=== PATIENT | female | born 1930 | race Hispanic/Latino ===

== ENCOUNTER 2017-10-24 02:04 | Emergency (ER) | payer MEDICARE | END 2017-10-24 02:31 | disposition left against medical advice (07) | LOC: ERS 02:04 | DX: Z53.21 Procedure and treatment not carried out due to patient leaving prior to being seen by health care provider (principal) ==

== ENCOUNTER 2018-03-20 10:28 | Inpatient (IN) | payer MEDICARE ==
[2018-03-20 11:17] LABS: Bilirubin Small (Negative); Blood, Urine Moderate (Negative); Clarity CLOUDY (Clear); Glucose, Urine (Dipstick) Negative (Negative); Leukocyte Small (Negative); Nitrite Negative (Negative); Protein, Urine (Dipstick) Trace mg/dL (Neg-Trace); Specific Gravity, Urine 1.024 (1.002-1.036)
[2018-03-20 11:20] LABS: Bacteria/HPF None Seen HPF (None Seen); WBC/HPF 0-3 HPF (0-3)
[2018-03-20 11:23] LABS: Pathc Cast-AUWi Flag 4.07 (0-2.49)
[2018-03-20 11:24] LABS: Hyaline Casts/LPF 0-3 HYALINE CAST LPF (0-3 Hyaline); Manual Microscopic Reviewed? No Path Casts Seen
[2018-03-20 12:13] LABS: #Basophils 0.1 thou/uL (0.0-0.2); #Eosinphils 0.2 thou/uL (0.0-0.7); #Lymphocytes 1.2 thou/uL (1.20-3.40); #Monocytes 0.6 thou/uL (0.11-0.59); #Neutrophils 5.6 thou/uL (1.40-6.50); %Basophils 0.9 % (0.0-1.0); %Eosinophils 3.1 % (0.0-10.0); %Monocytes 8.1 % (0.0-10.0); %Neutrophils 71.9 % (42.0-75.0); Hemoglobin 12.4 g/dL (12.0-16.0); Mean Corpuscular HGB CONC 33.5 g/dL (32.0-36.0); Mean Corpuscular Hemoglobin 30.8 pg (27.0-31.0); Mean Corpuscular Volume 91.9 fL (78.0-98.0); Mean Platelet Volume 7.9 fL (7.4-10.4); Platelet Count 261 thou/uL (130-400); RBC Distribution Width 11.5 % (11.5-14.5); Red Blood Cell (RBC) Count 4.04 mill/uL (4.20-5.40); White Blood Cell (WBC) Count 7.7 thou/uL (4.8-10.8)
[2018-03-20 12:31] LABS: ALT (SGPT) 14 U/L (8-55); AST (SGOT) 18 U/L (5-34); Albumin 4.1 g/dL (3.4-4.8); Alkaline Phosphatase 74 U/L (40-150); Anion Gap 12 mmol/L (10-20); BUN (Urea Nitrogen) 21 mg/dL (9.8-20.1); Bilirubin, Total 0.7 mg/dL (0.2-1.2); Calc. Creatinine Clearance 0 mL/min (70-130); Calcium 9.2 mg/dL (7.8-10.44); Carbon Dioxide 23 mmol/L (23-31); Chloride 107 mmol/L (98-107); Estimated GFR-MDRD 74; Globulin 2.9 g/dL (2.4-3.5); Glucose 122 mg/dL (83-110); Potassium 4.4 mmol/L (3.5-5.1); Sodium 138 mmol/L (136-145)
[2018-03-20] MEDS ORDERED: Calcium Carbonate 500 MG ChewTAB PO PRN (12:53)
[2018-03-20] MEDS ORDERED: Nitroglycerin 0.4 MG TAB (25 Tab Bottle) SL PRN (12:53)
[2018-03-20] MEDS ORDERED: HumaLOG 300 UNITS/3 ML VIAL SC PRN ×2 (12:53)
[2018-03-20] MEDS ORDERED: Diabetic Tussin 200 MG/10 ML UDCUP PO PRN (12:53)
[2018-03-20] MEDS ORDERED: Loratadine 10 MG TAB PO PRN (12:53)
[2018-03-20] MEDS ORDERED: Dextrose 5% in Water 1,000 ML IV PRN (12:53)
[2018-03-20] MEDS ORDERED: Dextrose 50% Abboject 50 ML SYRINGE SLOW IVP PRN (12:53)
[2018-03-20] MEDS ORDERED: traMADol HCl 50 MG TAB PO PRN (12:53)
[2018-03-20] MEDS ORDERED: Acetaminophen 325 MG TAB PO PRN (12:53)
[2018-03-20] MEDS ORDERED: hydrALAZINE 20 MG/ML VIAL SLOW IVP PRN (12:53)
[2018-03-20] MEDS ORDERED: cloNIDine 0.1 MG TAB PO PRN (12:53)
[2018-03-20] MEDS ORDERED: Mag-Al 1200 mg/1200 mg/30 ML UDCUP PO PRN (12:53)
[2018-03-20] MEDS ORDERED: Benzonatate 100 MG CAP PO PRN (12:53)
[2018-03-20] MEDS ORDERED: Pantoprazole 40 MG VIAL ONE (13:23)
[2018-03-20 14:28] LABS: INR-International Normal Ratio 1.1; Prothrombin Time 14.5 SEC (12.0-14.7)
--- NOTE | 2018-03-20 14:31 | HP ---
DATE OF ADMISSION: 03/20/2018 PRIMARY CARE PHYSICIAN: Dr. Merary Perez. CHIEF COMPLAINT: Bright red blood per rectum. HISTORY OF PRESENTING ILLNESS: Ms. Mckee is a very pleasant 87-year-old female with past medical history of borderline diabetes, hypertension and dyslipidemia, who presented to the ER with the abov e-mentioned complaint. History is mainly obtained by the patient herself and case has been discussed with admitting ER physician, Dr. Ashford. Electronic medical records have been reviewed. Ms. Mckee reported that she has been in her usual health up until this morning. This morning she woke up to go use the restroom and had a bloody bowel movement around 6:30 this morning. She states that she was not feeling the urge, but she had an incontinent stool like movement which was only blo od. She later had 1 more bloody bowel movement about an hour later and one more about 2 hours later. She presented to the ER and had 1 more bloody bowel movement in the emergency room. She denies any abdominal pain. She has noticed that her stools have been dark lately, but she reported that she ea ts lot of fruits and vegetables. She denies any recent illnesses. She denies any dizziness, lighthe adedness, chest pain or shortness of breath. She reports that she had similar symptoms about 2 years ago and underwent colonoscopy as an outpatient. At that time, she was found to have polyps which we re removed. Since then, she has been stable. The patient reports that she takes daily aspirin 81 mg daily as prescribed by her primary care physic harshad. She denies taking any other NSAIDs for pain like ibuprofen. She is not on any blood thinners. Upon presentation to the ER, her blood pressure was 143/65 with heart rate of 54. Her hemoglobin and hematocrit were stable at 12.4 and 37.1 respectively. She has slight elevation in her BUN at 21, bu t otherwise serum chemistries were also unremarkable. She has been typed and crossed in the emergenc y room and is now being admitted for possible lower GI bleed. PAST MEDICAL HISTORY: 1. Non-insulin dependent diabetes mellitus. 2. Hypertension. 3. Dyslipidemia. PAST SURGICAL HISTORY: 1. Right arm orthopedic surgery. 2. Colonoscopy 2014. PSYCHIATRIC HISTORY: No anxiety, no depression. SOCIAL HISTORY: She lives with the family. No history of drug, tobacco or alcohol abuse. FAMILY HISTORY: No significant family history of any gastrointestinal malignancies of clotting or bl eeding disorders. No history of any cardiac or strokes. ALLERGIES: PENICILLIN. CURRENT MEDICATIONS: Amlodipine 10 mg daily, aspirin 81 mg daily, metoprolol tartrate 50 mg daily an d pravastatin 20 mg daily. REVIEW OF SYSTEMS: The following complete review of systems was negative, unless otherwise mentioned in the HPI or below: Constitutional: Weight loss or gain, ability to conduct usual activities. Skin: Rash, itching. Eyes: Double vision, pain. ENT/Mouth: Nose bleeding, neck stiffness, pain, tenderness. Cardiovascular: Palpitations, dyspnea on exertion, orthopnea. Respiratory: Shortness of breath, wheezing, cough, hemoptysis, fever or night sweats. Gastrointestinal: Poor appetite, abdominal pain, heartburn, nausea, vomiting, constipation, or diarr hea. Genitourinary: Urgency, frequency, dysuria, nocturia. Musculoskeletal: Pain, swelling. Neurologic/Psychiatric: Anxiety, depression. Allergy/Immunologic: Skin rash, bleeding tendency. It is negative except for those mentioned in the history and physical. A 12-point review of systems is done and is negative except for those mentioned in the history and physical. LABORATORY DATA: CBC shows hemoglobin 12.4, hematocrit 37.1. WBC 7.7, platelet count of 261, glucos e 122, BUN 21, otherwise unremarkable. Urinalysis has multiple squamous epithelial cells and rbc's 7 -10. PHYSICAL EXAMINATION: VITAL SIGNS: Upon presentation, blood pressure 143/65, pulse of 54, respirations 16, saturating 95% on room air and temperature 98.1. GENERAL: She is in good health status. No acute distress, awake, alert, oriented x3, appears well n ourished. HEENT: Mucous membrane is moist and pink. No oropharyngeal exudate or erythema. Head is normocepha lic, atraumatic. Pupils are equal, reactive to light and accommodation. Extraocular movement intact . NECK: Supple without any lymphadenopathy, JVD or bruit. CHEST: Clear to auscultation without any wheezing, rales or rhonchi. Rate and rhythm is regular wit hout any murmur, rubs or gallops. ABDOMEN: Examination is totally benign. Good bowel sounds are heard. No hepatosplenomegaly. No te nderness or distention. It is soft without any guarding, rebound or rigidity. EXTREMITIES: Free of any cyanosis, clubbing, or edema. NEUROLOGIC: Examination is nonfocal. SKIN: Free of any rashes or bruises. I feel warm and dry to touch. PSYCHIATRIC: Normal affect. IMPRESSION AND PLAN: 1. Lower gastrointestinal bleed, most likely secondary to diverticulitis versus angiodysplasia. Les s likely due to ischemic colitis. The patient has not had any abdominal pain. At this time, her hem oglobin and hematocrit is stable and hemodynamics are stable. She will be started on gentle IV fluid s with D5 half normal saline as she is a diabetic. We will keep her n.p.o. and request consultation with Gastroenterology for possible colonoscopy as well as endoscopy if indicated. She will be starte d on proton pump inhibitor IV twice a day for now. She has received first dose in the emergency room . We will check her hemoglobin and hematocrit every few hours. She has been typed and crossed and t ransfusion will be provided if she drops her hemoglobin too quickly. She will be admitted to telemet ry unit given multiple stools that were bloody. 2. Diabetes mellitus. At this time, we will hold her oral hypoglycemics as she is n.p.o. We will p ut her on insulin sliding scale with frequent Accu-Chek monitoring. 3. Hypertension, currently controlled. We will use IV p.r.n. antihypertensives as long as she is no t able to take oral medications in preparation for colonoscopy. 4. Dyslipidemia. Resume pravastatin once she is able to take oral medications as cleared by GI. 5. Code status did discuss in detail with the patient. She wants to undergo CPR and cardiac resusci tation, but does not want intubation. I did try to discuss this with her that one without the other is redundant but she is adamant that she does not want tube because her was intubated at [facility] for months. She is okay with the CPR or shocking of the heart. She does not want any tubes. 6. Deep venous thrombosis and gastrointestinal prophylaxis, on p.r.n. medication. DISPOSITION: Ms. Mckee is currently being admitted to the hospital with lower GI bleed. Estimat ed length of stay is at least 2-3 midnights. Further management will depend upon her clinical course .
[2018-03-20] MEDS: Dextrose 5 %-0.45 % NaCl 1,000 ML IV SCH (15:34)
[2018-03-20 17:05] VITALS: BMI 30.4
[2018-03-20 17:07] LABS: Hemoglobin 11.6 g/dL (12.0-16.0)
[2018-03-20 20:27] LABS: Hemoglobin 10.9 g/dL (12.0-16.0)
[2018-03-20] MEDS ORDERED: GoLYTELY 4,000 ml Bottle PO SCH (21:00)
[2018-03-20] MEDS: Pantoprazole 40 MG VIAL IVP SCH (21:14)
--- NOTE | 2018-03-21 02:19 | CON ---
DATE OF CONSULTATION: 03/20/2018 REASON FOR CONSULTATION: Hematochezia. CONSULTING PHYSICIAN: Aurora Mcginnis M.D. HISTORY OF PRESENT ILLNESS: The patient is an 87-year-old female with past medical history of impair ed fasting glucose, hypertension, and hyperlipidemia presenting with complaints of hematochezia. She said that she was in her usual state of health until approximately 6:00 a.m. this morning when she w ofelia up to go to the bathroom. Upon having a bowel movement which was normal for her at this particul ar time of day, she noted bright red blood, both on the toilet paper and in the toilet. She denied a ny symptoms at that particular point in time and was in fact surprised by the appearance of blood wit hin her stool. Over the next 6-12 hours, she had approximately 6-7 additional bloody bowel movements consisting primarily of blood with small amounts of stool mixed in with the blood within the toilet. With the appearance of these bloody bowel movements, she ultimately sought health care attention wi thin the ER and had one additional bloody bowel movement within the emergency room. During this enti re time, she denies any nausea, vomiting, fevers, chills, abdominal pain, hematemesis, melena, weight loss, diarrhea, constipation, dysphagia, or odynophagia. Upon questioning, she could not recall whe n her last colonoscopy was, but per chart review, it may have been approximately 2 years ago, when migel villalta had similar symptoms with polyps removed at that time. Of note, she does have a brother who was di agnosed with colon polyps that required surgical resection of those polyps. She does also endorse a possible history of hemorrhoids in the past, but has never experienced significant bleeding from thes e hemorrhoids. She does take an aspirin 81 mg daily, but denies any other use of NSAIDs. Of note, p er chart review, she was noted to be normotensive with a bradycardic rate on admission. REVIEW OF SYSTEMS: A 10-category review of systems was obtained with all responses negative except f or the pertinent positives as listed in the HPI. PAST MEDICAL HISTORY: As per HPI. PAST SURGICAL HISTORY: Right arm surgery. FAMILY HISTORY: Denies any GI malignancies. SOCIAL HISTORY: Denies any tobacco, alcohol, or illicit drug use. OUTPATIENT MEDICATIONS: Reviewed. ALLERGIES: PENICILLIN. PHYSICAL EXAMINATION: VITAL SIGNS: Temperature 98.4, pulse 57, blood pressure 151/66, respiratory rate 16, satting 97% on room air. GENERAL: The patient is lying in bed in no acute distress. Alert and oriented x4. NECK: Supple. No JVD noted. CARDIOVASCULAR: Bradycardic rate with regular rhythm. No discernible murmurs, gallops, or rubs. LUNGS: Clear to auscultation bilaterally with no discernible wheezes or rales. ABDOMEN: Normoactive bowel sounds, soft, nontender, nondistended. EXTREMITIES: No cyanosis, clubbing or edema. LABORATORY DATA: CBC with a white blood cell count of 7.7, hemoglobin 10.9, hematocrit 32, platelets 261. INR 1.1. Chemistry with a sodium of 138, potassium 4.4, chloride 107, carbon dioxide 23, BUN 21, creatinine 0.74, glucose 122, AST 18, ALT 14, alkaline phosphatase 74, total bilirubin 0.7, album in 4.1. IMAGING DATA: No current GI imaging is available for review. ASSESSMENT AND PLAN: The patient is an 87-year-old female with past medical history of impaired fast ing glucose, hypertension and hyperlipidemia, presenting with complaints of hematochezia, most likely from a diverticular source. Hematochezia/diverticular bleeding. The patient is presenting with acute onset of bright red blood p er rectum, characterized as a large amount of bright red blood in both the toilet paper and in the to ilet. She has had no associated symptoms with the occurrence of this bleeding and has had approximat clarence 7 to 8 bloody bowel movements since the initial occurrence with only small amounts of stools mixe d in. At this point, the differential could include diverticular bleeding (most likely) arteriovenou s malformation or Dieulafoy lesion, colonic ulceration from NSAID use (much less likely) and/or colon ic malignancy (much less likely given colonoscopy 2 to 3 years ago). RECOMMENDATIONS: 1. Would place the patient on a clear liquid diet in anticipation for colonoscopy tomorrow. 2. We will perform colonoscopy with GoLYTELY prep tomorrow morning for evaluation of the colon for p ossible diverticular bleeding. Please make the patient n.p.o. at midnight in preparation for this pr ocedure. 3. Would continue to trend H&H and transfuse as necessary to maintain an H&H of 04/15. 4. Continue to monitor for signs of active gastrointestinal bleeding. We will continue to follow. Please call with any additional questions.
[2018-03-21 05:26] LABS: #Eosinphils 0.1 thou/uL (0.0-0.7); #Lymphocytes 1.3 thou/uL (1.20-3.40); #Monocytes 0.4 thou/uL (0.11-0.59); #Neutrophils 6.2 thou/uL (1.40-6.50); %Basophils 0.5 % (0.0-1.0); %Eosinophils 1.1 % (0.0-10.0); %Monocytes 4.8 % (0.0-10.0); %Neutrophils 77.6 % (42.0-75.0); Hemoglobin 8.8 g/dL (12.0-16.0); Mean Corpuscular HGB CONC 34.6 g/dL (32.0-36.0); Mean Corpuscular Volume 92.5 fL (78.0-98.0); Mean Platelet Volume 8.2 fL (7.4-10.4); Platelet Count 199 thou/uL (130-400); RBC Distribution Width 11.6 % (11.5-14.5); Red Blood Cell (RBC) Count 2.76 mill/uL (4.20-5.40)
[2018-03-21 05:54] LABS: Anion Gap 14 mmol/L (10-20); BUN (Urea Nitrogen) 14 mg/dL (9.8-20.1); Calc. Creatinine Clearance 70 mL/min (70-130); Calcium 8.1 mg/dL (7.8-10.44); Carbon Dioxide 22 mmol/L (23-31); Chloride 106 mmol/L (98-107); Estimated GFR-MDRD Greater than 90; Glucose 126 mg/dL (83-110); Potassium 3.5 mmol/L (3.5-5.1); Sodium 138 mmol/L (136-145)
[2018-03-21] MEDS ORDERED: Metoprolol Tartrate 50 MG TAB PO SCH (09:00)
[2018-03-21] MEDS: Dextrose 5 %-0.45 % NaCl 1,000 ML IV SCH ×3 (09:48→20:44)
[2018-03-21] MEDS: Pantoprazole 40 MG VIAL IVP SCH ×2 (10:19→20:45)
[2018-03-21] MEDS: Enoxaparin Sodium 40 MG/0.4 ML SYRINGE SC SCH (10:20)
[2018-03-21] MEDS: Amlodipine 10 MG TAB PO SCH (10:21)
[2018-03-21] MEDS ORDERED: diphenhydrAMINE 12.5 MG in Sodium Chloride 0.9% 50 ML IVPB SCH (11:00)
[2018-03-21] MEDS ORDERED: Glycopyrrolate 0.2 MG/ML 5 ML SYRINGE ONE (13:12)
[2018-03-21] MEDS ORDERED: PROPOFOL 200 MG/20 ML VIAL ONE (13:12)
--- NOTE | 2018-03-21 14:39 | PDOC.PN ---
- Subjective Encounter Start Date: 03/21/18 Encounter Start Time: 14:37 Subjective: feels well. slight dizzy this morning. -: more bloody stools since last night -: no CP/SOB. itchy in arms and neck - Objective Vital Signs & Weight: Vital Signs (12 hours) Temp Pulse Pulse Pulse Resp BP BP 03/21/18 11:55 98.1 F 52 L 20 03/21/18 10:21 56 L 03/21/18 08:45 98.5 F 56 L 16 03/21/18 08:12 61 63 155/69 H 141/63 H 03/21/18 08:00 98.5 F 56 L 16 03/21/18 04:14 97.8 F 57 L 20 BP Pulse Ox 03/21/18 11:55 118/58 L 96 03/21/18 10:21 03/21/18 08:45 92 L 03/21/18 08:12 03/21/18 08:00 118/55 L 92 L 03/21/18 04:14 103/52 L 98 I&O: 03/20/18 03/21/18 03/22/18 06:59 06:59 06:59 Output Total 3 Balance -3 Result Diagrams: 03/21/18 04:58 03/21/18 04:58 Additional Labs: Accuchecks 03/21/18 03/20/18 03/20/18 06:21 21:13 17:45 POC Glucose 112 H 172 H 129 H Phys Exam - Physical Examination Constitutional: NAD HEENT: PERRLA, moist MMs, sclera anicteric, oral pharynx no lesions Neck: no nodes, no JVD, supple, full ROM Respiratory: no wheezing, no rales, no rhonchi, clear to auscultation bilateral Cardiovascular: RRR, no significant murmur, no rub Gastrointestinal: soft, non-tender, no distention, positive bowel sounds Musculoskeletal: no edema, pulses present Neurological: non-focal, normal sensation, moves all 4 limbs Psychiatric: normal affect, A&O x 3 Skin: no rash Dx/Plan (1) Lower GI bleed Code(s): K92.2 - GASTROINTESTINAL HEMORRHAGE, UNSPECIFIED Status: Acute (2) DM2 (diabetes mellitus, type 2) Status: Chronic (3) HTN (hypertension) Code(s): I10 - ESSENTIAL (PRIMARY) HYPERTENSION Status: Chronic (4) HLD (hyperlipidemia) Code(s): E78.5 - HYPERLIPIDEMIA, UNSPECIFIED Status: Chronic - Plan plan discussed w/ family, PT/OT, DVT proph w/SCDs cont IVF,PPI.Colonoscopy today -: H/H trended down .monitor.repeat -: hold BP meds as BP borderline.hold lovenox -: give small dose benadryl w caution w BP -: hemodynamically stable. cont to monitor.am labs * . Review of Systems - Review of Systems Constitutional: weakness. negative: fever, chills, sweats, malaise, other ENT: negative: Ear Pain, Ear Discharge, Nose Pain, Nose Discharge, Nose Congestion, Mouth Pain, Mouth Swelling, Throat Pain, Throat Swelling, Other Respiratory: negative: Cough, Dry, Shortness of Breath, Hemoptysis, SOB with Excertion, Pleuritic Pain, Sputum, Wheezing Cardiovascular: light headedness. negative: chest pain, palpitations, orthopnea , paroxysmal nocturnal dyspnea, edema, other Gastrointestinal: Hematochezia. negative: Nausea, Vomiting, Abdominal Pain, Diarrhea, Constipation, Melena, Other Genitourinary: negative: Dysuria, Frequency, Incontinence, Hematuria, Retention , Other Musculoskeletal: negative: Neck Pain, Shoulder Pain, Arm Pain, Back Pain, Hand Pain, Leg Pain, Foot Pain, Other Neurological: negative: Weakness, Numbness, Incoordination, Change in Speech, Confusion, Seizures, Other - Medications/Allergies Allergies/Adverse Reactions: Allergies Allergy/AdvReac Type Severity Reaction Status Date / Time iodine Allergy Unknown Verified 03/20/18 15:43 Penicillins Allergy Verified 03/20/18 15:43 Medications: Current Medications Acetaminophen (Tylenol) 650 mg PO Q4H PRN PRN Reason: Headache/Fever or Pain Al Hydroxide/Mg Hydroxide (Maalox) 30 ml PO Q6H PRN PRN Reason: Heartburn or Indigestion Amlodipine Besylate (Norvasc) 10 mg PO DAILY [facility] Last Admin: 03/21/18 10:21 Dose: Not Given Benzonatate (Tessalon) 100 mg PO Q4H PRN PRN Reason: Cough Calcium Carbonate (Tums) 1,000 mg PO Q4H PRN PRN Reason: Heartburn or Indigestion Clonidine (Catapres) 0.1 mg PO Q4H PRN PRN Reason: Systolic BP > 160 Dextrose/Water (Dextrose 50%) 25 gm SLOW IVP PRN PRN PRN Reason: Hypoglycemia Enoxaparin Sodium (Lovenox) 40 mg SC 0900 [facility] [place] Last Admin: 03/21/18 10:20 Dose: Not Given Glucagon (Glucagon) 1 mg IM PRN PRN PRN Reason: Hypoglycemia Guaifenesin (Robitussin Sf) 200 mg PO Q4H PRN PRN Reason: Cough Hydralazine HCl (Apresoline) 10 mg SLOW IVP Q4H PRN PRN Reason: Systolic BP > 170 Dextrose/Water (D5w) 1,000 mls @ 0 mls/hr IV .Q0M PRN; As Directed PRN Reason: Hypoglycemia Dextrose/Sodium Chloride (D5 1/2 Ns) 1,000 mls @ 75 mls/hr IV .[id number] [facility] [place] Last Admin: 03/21/18 10:20 Dose: 1,000 mls Insulin Human Lispro (Humalog) 0 units SC .MODERATE SLIDING SC PRN PRN Reason: Moderate Correctional Scale Insulin Human Lispro (Humalog) 0 units SC .BEDTIME SLIDING SC PRN PRN Reason: Bedtime Correctional Scale Loratadine (Claritin) 10 mg PO DAILYPRN PRN PRN Reason: Sinus Symptoms Nitroglycerin (Nitrostat) 0.4 mg SL Q5MIN PRN PRN Reason: Chest Pain Pantoprazole Sodium (Protonix) 40 mg IVP Q12HR [facility] [place] Last Admin: 03/21/18 10:19 Dose: 40 mg Simvastatin (Zocor) 10 mg PO HS [facility]EL Sodium Chloride (Flush - Normal Saline) 10 ml IVF Q12HR [facility] [place] Sodium Chloride (Flush - Normal Saline) 10 ml IVF PRN PRN PRN Reason: Saline Flush Tramadol HCl (Ultram) 50 mg PO Q4H PRN PRN Reason: Moderate Pain (4-6)
[2018-03-21 15:34] LABS: Hemoglobin 8.6 g/dL (12.0-16.0)
[2018-03-21] MEDS ORDERED: Promethazine HCl 25 MG/ML VIAL SLOW IVP PRN (16:56)
[2018-03-21] MEDS ORDERED: Promethazine HCl 25 MG/ML VIAL IM PRN (16:56)
[2018-03-21] MEDS ORDERED: Ondansetron HCl/PF 4 MG/2 ML Vial IVP PRN (16:56)
[2018-03-21] MEDS ORDERED: Simvastatin 5 MG TAB PO SCH (21:00)
[2018-03-21] MEDS ORDERED: Pravastatin Sodium 20 MG TAB PO SCH (21:00)
--- NOTE | 2018-03-21 23:15 | OP ---
PREOPERATIVE DIAGNOSIS: Gastrointestinal bleed. PROCEDURE: After informed consent was obtained, the patient was placed in the left lateral decubitus position. Anesthesia administered per the Anesthesia Department. Forward-viewing endoscope was ins erted into the rectum. After perianal inspection and rectal exam were normal and passed to the cecum with ease. The cecum, ileocecal valve, and appendiceal orifice were normal. The prep was good. Th e ascending, transverse, descending, sigmoid, and rectum were normal except for diffuse diverticulosi s coli. No bloody effluent was noted throughout the colon. No blood was seen in the lower GI tract. Retroflexion in the rectum showed internal hemorrhoids. In the rectum, a small 4 mm polyp was niels karen with cold snare polypectomy. ASSESSMENT: 1. Small rectal polyp - status post cold polypectomy. 2. Diffuse diverticulosis coli. 3. Internal hemorrhoids - probable source of the patient's bleeding. RECOMMENDATIONS: 1. Daily fiber supplementation. 2. Stable from GI standpoint for discharge.
[2018-03-22 05:57] LABS: Hemoglobin 8.2 g/dL (12.0-16.0)
[2018-03-22 05:59] LABS: Anion Gap 11 mmol/L (10-20); BUN (Urea Nitrogen) 6 mg/dL (9.8-20.1); Calc. Creatinine Clearance 63 mL/min (70-130); Calcium 8.6 mg/dL (7.8-10.44); Carbon Dioxide 28 mmol/L (23-31); Chloride 107 mmol/L (98-107); Estimated GFR-MDRD 83; Glucose 112 mg/dL (83-110); Potassium 3.5 mmol/L (3.5-5.1); Sodium 142 mmol/L (136-145)
[2018-03-22] MEDS: Pantoprazole 40 MG VIAL IVP SCH (10:23)
[2018-03-22] MEDS: Amlodipine 10 MG TAB PO SCH (10:24)
[2018-03-22 11:59] VITALS: BP 116/63; TEMP 97.7
[2018-03-22] MEDS: Enoxaparin Sodium 40 MG/0.4 ML SYRINGE SC SCH (12:37)
--- NOTE | 2018-03-22 12:44 | PDOC.PN ---
- Subjective Encounter Start Date: 03/22/18 Encounter Start Time: 08:40 Subjective: no bleeding or abd pain or nausea -: feels good - Objective MAR Reviewed: Yes Vital Signs & Weight: Vital Signs (12 hours) Temp Pulse Resp BP Pulse Ox 03/22/18 11:58 97.7 F 72 16 116/63 94 L 03/22/18 10:24 70 03/22/18 09:30 97.7 F 72 16 94 L 03/22/18 07:55 98.8 F 70 16 150/61 H 92 L 03/22/18 04:00 98.9 F 60 18 134/58 L 92 L I&O: 03/21/18 03/22/18 03/23/18 06:59 06:59 06:59 Intake Total 240 Output Total 3 Balance 237 Result Diagrams: 03/22/18 04:57 03/22/18 04:57 Additional Labs: Accuchecks 03/21/18 03/21/18 20:28 11:02 POC Glucose 112 H 119 H Phys Exam - Physical Examination HEENT: PERRLA, moist MMs Neck: no JVD, supple Respiratory: no wheezing, no rales Cardiovascular: RRR, no significant murmur Gastrointestinal: soft, non-tender, no distention, positive bowel sounds Musculoskeletal: no edema, pulses present Neurological: non-focal, moves all 4 limbs Psychiatric: normal affect, A&O x 3 Dx/Plan (1) Acute blood loss anemia Code(s): D62 - ACUTE POSTHEMORRHAGIC ANEMIA Status: Acute (2) Lower GI bleed Code(s): K92.2 - GASTROINTESTINAL HEMORRHAGE, UNSPECIFIED Status: Acute Comment: likely due to int hemorrhoids (3) DM2 (diabetes mellitus, type 2) Status: Chronic Qualifiers: Diabetes mellitus rodent exterminator insulin use: without rodent exterminator use Diabetes mellitus complication status: with unspecified complications Qualified Code(s) : E11.8 - Type 2 diabetes mellitus with unspecified complications (4) HLD (hyperlipidemia) Code(s): E78.5 - HYPERLIPIDEMIA, UNSPECIFIED Status: Chronic Qualifiers: Hyperlipidemia type: unspecified Qualified Code(s): E78.5 - Hyperlipidemia , unspecified (5) HTN (hypertension) Code(s): I10 - ESSENTIAL (PRIMARY) HYPERTENSION Status: Chronic Qualifiers: Hypertension type: essential hypertension Qualified Code(s): I10 - Essential (primary) hypertension - Plan oral iron, hemostable -: dc pt home, d/w pt and daughter at bedside -: to f/u with GI as adv and PCP in 1 week -: fibre rich diet * . Review of Systems - Medications/Allergies Allergies/Adverse Reactions: Allergies Allergy/AdvReac Type Severity Reaction Status Date / Time iodine Allergy Unknown Verified 03/20/18 15:43 Penicillins Allergy Verified 03/20/18 15:43 Medications: Current Medications Acetaminophen (Tylenol) 650 mg PO Q4H PRN PRN Reason: Headache/Fever or Pain Al Hydroxide/Mg Hydroxide (Maalox) 30 ml PO Q6H PRN PRN Reason: Heartburn or Indigestion Amlodipine Besylate (Norvasc) 10 mg PO DAILY [facility] Last Admin: 03/22/18 10:24 Dose: 10 mg Benzonatate (Tessalon) 100 mg PO Q4H PRN PRN Reason: Cough Calcium Carbonate (Tums) 1,000 mg PO Q4H PRN PRN Reason: Heartburn or Indigestion Clonidine (Catapres) 0.1 mg PO Q4H PRN PRN Reason: Systolic BP > 160 Dextrose/Water (Dextrose 50%) 25 gm SLOW IVP PRN PRN PRN Reason: Hypoglycemia Enoxaparin Sodium (Lovenox) 40 mg SC 0900 [facility] Last Admin: 03/22/18 12:37 Dose: Not Given Glucagon (Glucagon) 1 mg IM PRN PRN PRN Reason: Hypoglycemia Guaifenesin (Robitussin Sf) 200 mg PO Q4H PRN PRN Reason: Cough Hydralazine HCl (Apresoline) 10 mg SLOW IVP Q4H PRN PRN Reason: Systolic BP > 170 Dextrose/Water (D5w) 1,000 mls @ 0 mls/hr IV .Q0M PRN; As Directed PRN Reason: Hypoglycemia Dextrose/Sodium Chloride (D5 1/2 Ns) 1,000 mls @ 75 mls/hr IV .[id number] [facility] Last Admin: 03/21/18 20:44 Dose: 1,000 mls Insulin Human Lispro (Humalog) 0 units SC .MODERATE SLIDING SC PRN PRN Reason: Moderate Correctional Scale Insulin Human Lispro (Humalog) 0 units SC .BEDTIME SLIDING SC PRN PRN Reason: Bedtime Correctional Scale Loratadine (Claritin) 10 mg PO DAILYPRN PRN PRN Reason: Sinus Symptoms Nitroglycerin (Nitrostat) 0.4 mg SL Q5MIN PRN PRN Reason: Chest Pain Pantoprazole Sodium (Protonix) 40 mg IVP Q12HR [facility] Last Admin: 03/22/18 10:23 Dose: 40 mg Simvastatin (Zocor) 10 mg PO HS [facility] Last Admin: 03/21/18 20:44 Dose: 10 mg Sodium Chloride (Flush - Normal Saline) 10 ml IVF Q12HR [facility] Last Admin: 03/22/18 12:37 Dose: Not Given Sodium Chloride (Flush - Normal Saline) 10 ml IVF PRN PRN PRN Reason: Saline Flush Tramadol HCl (Ultram) 50 mg PO Q4H PRN PRN Reason: Moderate Pain (4-6)
--- NOTE | 2018-03-23 13:40 | DIS ---
DATE OF ADMISSION: 03/20/2018 DATE OF DISCHARGE: 03/22/2018 PRIMARY DISCHARGE DIAGNOSES: Acute blood loss anemia, lower gastrointestinal bleed, possible secondary to internal hemorrhoids, stable at present. SECONDARY DISCHARGE DIAGNOSES: Diabetes mellitus type 2, hypertension, dyslipidemia. PROCEDURES DONE DURING HOSPITALIZATION: The patient has had colonoscopy done by Dr. Schwarz, which showed small rectal polyp, status post cold polypectomy. The histopathology of this is shown it to be hyperplastic. There is also diffuse diverticulosis coli seen on colonoscopy, she also had internal hemorrhoids, probable source of patient's bleeding. H&H 8 and 24, initial H&H was 12 and 37. Platelet count 199, MCV is 92, BUN 6, creatinine 0.6. INPATIENT CONSULTS: Dr. Schwarz/Dr. oCry Avalos for Gastroenterology. DISCHARGE MEDICATIONS: Norvasc 10 mg p.o. daily, the patient to restart aspirin in 2 weeks, Vitamin D3 of 5000 units p.o. daily, ferrous sulfate 325 mg p.o. twice daily, Lopressor 50 mg daily, MiraLax 17 grams daily, pravastatin 20 mg p.o. at bedtime. DISCHARGE PLAN: The patient to follow up with Dr. Schwarz as advised and primary care physician in 1 week. BRIEF COURSE DURING HOSPITALIZATION: The patient initially got admitted on the after she came to ER with complaints of bleeding per rectum. She has had serial H&H done and has had consultation with Dr. Cory Avalos and Dr. Schwarz. She has had subsequent colonoscopy done which showed findings of diverticulosis coli and internal hemorrhoids. Her H&H's remained stable around 8 and 25. The patient had acute blood loss anemia with initial H&H of 12 and 37. Likely her bleeding was from internal hemorrhoids. Prior to discharge, she is ambulating and eating well. She has been cleared by Dr. Schwarz for discharge. Please see a [id number] documentation on [facility] for the day of discharge. Please note patient has been advised to hold aspirin for 2 weeks and to restart. She was also given prescription for ferrous sulfate. [facility]
--- NOTE | 2018-03-25 12:37 | EKG ---
Test Reason : Blood Pressure : / mmHG Vent. Rate : 053 BPM Atrial Rate : 053 BPM P-R Int : 156 ms QRS Dur : 078 ms QT Int : 452 ms P-R-T Axes : 009 004 025 degrees QTc Int : 424 ms Sinus bradycardia Otherwise normal ECG Confirmed by ABAD PETER M.D. ([id number]), offline editor AUGUSTO BAKER ([id number]) on 03/25/2018 12:36:42 PM Referred By: Confirmed By:ABAD PETER M.D.
== END 2018-03-22 12:55 | disposition home or self-care (01) | DRG 394 ==
LOC: ERS 10:28 → 2SE 15:05
PROVIDERS: ADMIT Internal Medicine; ATTEND Internal Medicine
PROC: 0DBP8ZZ Excision of Rectum, Via Natural or Artificial Opening Endoscopic (ICD-10-PCS; principal; 2018-03-21)
DX: K64.8 Other hemorrhoids (principal); D62 Acute posthemorrhagic anemia; K57.30 Diverticulosis of large intestine without perforation or abscess without bleeding; E11.9 Type 2 diabetes mellitus without complications; Z79.4 Long term (current) use of insulin; E78.5 Hyperlipidemia, unspecified; I10 Essential (primary) hypertension; K62.1 Rectal polyp; Z88.0 Allergy status to penicillin
CPT/HCPCS: 36415; 36416; 80048; 80053; 81003; 81015; 82274; 85014; 85018; 85025; 85610; 86850; 86900; 86901; 88305; 93005; C9113; G8978-GP-CL; G8979-GP-CL; G8980-GP-CL; G8987-GO-CI; G8988-GO-CI; G8989-GO-CI; J1200; J1650; J2704; J7050